=== PATIENT | female | born 1960 | race American Indian/Alaskan Native ===

== ENCOUNTER 2017-07-04 12:29 | Emergency (ER) | payer SELFPAY ==
[2017-07-04 12:39] VITALS: BP 119/73
[2017-07-04] MEDS ORDERED: TYLENOL PO ONE (12:39)
[2017-07-04] MEDS ORDERED: TYLENOL ONE (12:41)
--- NOTE | 2017-07-04 16:53 | Emergency Department Report ---
Chief Complaint: Upper Respiratory Infection Stated Complaint: FLU LIKE SYMPTOMS - ROS Review of Systems: 56-year-old female with history of hypertension diabetes, tobacco abuse presents with cough and low-grade fever. Nonproductive cough. Chest x-ray 2 View ordered. - Exam Vital Signs: Vital Signs 07/04/17 12:34 Temperature 100 F H Pulse Rate 91 H Respiratory 16 Rate Blood Pressure 119/73 O2 Sat by Pulse 96 Oximetry MSE screening note: Focused history and physical exam performed. Due to findings the following was ordered: ED Disposition for MSE Condition: Stable Referrals: PRIMARY CARE, [Primary Care Provider] - 3-5 Days
--- NOTE | 2017-07-04 18:21 | XRay Report ---
FINAL REPORT EXAM: XR CHEST ROUTINE 2V HISTORY: cough fever tobacco abuse TECHNIQUE: 2 view examination of the chest PRIORS: None FINDINGS: Atherosclerotic change in the thoracic aorta. Degenerative change in the thoracic spine. There is no visible pulmonary consolidation, pleural effusion, or pneumothorax. Cardiac silhouette size is normal without vascular congestion. IMPRESSION: No evidence of acute cardiopulmonary disease
--- NOTE | 2017-07-04 20:00 | Emergency Department Report ---
HPI - General Chief Complaint: Upper Respiratory Infection Time Seen by Provider: 07/04/17 19:53 - HPI HPI: Patient reports cough and congestion with generalized weakness that started 2 days ago. Patient's a diabetic and said her blood sugars been stable. She said pain to her left hip at 5 out of 10. Denies any injury. Denies any shortness of breath or chest pain. Denies any abdominal or back pain. Denies any fever or chills. No [id number] medication taken. ED Past Medical Hx - Past Medical History Previous Medical History?: Yes Hx Diabetes: Yes - Surgical History Past Surgical History?: No - Family History Family history: hypertension - Social History Smoking Status: Current Every Day Smoker Substance Use Type: None - Medications Home Medications: Home Medications Medication Instructions Recorded Confirmed Last Taken Type Cetirizine HCl [ZyrTEC] 10 mg PO QAM 10 Days #10 capsule 07/04/17 Unknown Rx Fluticasone [Flonase] 1 spray NS QDAY 10 Days #1 bottle 07/04/17 Unknown Rx guaiFENesin/CODEINE [Robitussin AC] 5 ml PO Q8H PRN #753 ml 07/04/17 Unknown Rx ED Review of Systems ROS: Stated complaint: FLU LIKE SYMPTOMS Other details as noted in HPI Comment: All other systems reviewed and negative Constitutional: no symptoms reported Eyes: denies: eye pain, eye discharge ENT: congestion. denies: ear pain, throat pain Respiratory: cough. denies: orthopnea, shortness of breath, SOB with exertion, SOB at rest, stridor, wheezing Cardiovascular: denies: chest pain, palpitations, dyspnea on exertion, edema, syncope, paroxysmal nocturnal dyspnea Gastrointestinal: denies: nausea, vomiting, diarrhea, constipation, hematemesis , melena Genitourinary: denies: dysuria, hematuria Musculoskeletal: arthralgia (left hip pain), myalgia. denies: back pain, joint swelling Skin: denies: rash Neurological: denies: headache, numbness, paresthesias, confusion, abnormal gait , vertigo Physical Exam - Physical Exam Vital Signs: Vital Signs 07/04/17 12:34 Temperature 100 F H Pulse Rate 91 H Respiratory 16 Rate Blood Pressure 119/73 O2 Sat by Pulse 96 Oximetry Vital Signs 07/04/17 07/04/17 12:34 19:56 Temperature 100 F H 99.4 F Pulse Rate 91 H 88 Respiratory 16 Rate Blood Pressure 119/73 O2 Sat by Pulse 96 Oximetry General: This is a 56-year-old female well-nourished, well-developed in no acute distress. Physical Exam: Head: Normocephalic atraumatic Ears:BIateral TM congested without erythema and loss of bony landmarks. Cornell EAC with normal exam. No mastoid bone tenderness. Mouth: Moist, no pharyngeal erythema or exudate . No tonsillar erythema or exudate. UVULA midline and oral airways patent. No peritonsillar abscess Neck: Nontender to palpate, supple, normal range of motion. No adenopathy. No c- spine tenderness. Nose: Bilateral nasal mucosa congested with clear drainage. Maxillary and frontal sinuses non-tender to palpate. Eyes:Cornell Sclerae and conjunctiva without injection. Bilateral pupils equal and reactive to light. Bilateral lids are normal. Normal accommodation.BEOMI Lungs: Clear to auscultate bilaterally, no rhonchi wheezes or rales. Normal work of breathing and no chest wall tenderness Abdomen: Soft, nontender to palpate in all quadrants no guarding or rebound tenderness Extremities/MSK: No clubbing, cyanosis or edema. +2 pulses all extremities. No neurovascular compromise. +5 strength in all extremities and patient able to ambulate without any difficulties. CV: S1, S2. Regular rate and rhythm negative murmur. Capillary refill is less than 3 seconds Skin: Clean dry and intact, no rashes or lesions Psych: Normal mood and behavior ED Course Vital Signs 07/04/17 12:34 Temperature 100 F H Pulse Rate 91 H Respiratory 16 Rate Blood Pressure 119/73 O2 Sat by Pulse 96 Oximetry Vital Signs 07/04/17 07/04/17 12:34 19:56 Temperature 100 F H 99.4 F Pulse Rate 91 H 88 Respiratory 16 Rate Blood Pressure 119/73 O2 Sat by Pulse 96 Oximetry - Reevaluation(s) Reevaluation #1: 07/04/17 20:00 Patient stable throughout ED stay ED Medical Decision Making - Radiology Data Radiology results: report reviewed Chest x-ray revealed no acute cardiopulmonary findings - Medical Decision Making ED course: Patient here for upper respiratory infection with hip pain. Chest x- ray reveals no acute cardiopulmonary findings. Patient with low-grade temp and is given Tylenol 650 mg in emergency room along with another syringe and 25 mg in ED. Pain has been relieved and her vital signs as better. Patient with upper respiratory tract infection with fever and cough. I discussed results and diagnosis, treatment plan and follow-up the patient she voiced understanding patient discharged home a prescription for Zyrtec, Flonase, guaifenesin with codeine and to follow-up with her primary care physician Critical care attestation.: If time is entered above; I have spent that time in minutes in the direct care of this critically ill patient, excluding procedure time. ED Disposition Clinical Impression: Cough in adult, Fever in adult Upper respiratory infection Qualifiers: URI type: unspecified URI Qualified Code(s): J06.9 - Acute upper respiratory infection, unspecified Disposition: TO HOME OR SELFCARE Is pt being admited?: No Does the pt Need Aspirin: No Condition: Stable Instructions: Upper Respiratory Infection (ED), Acute Cough (ED) Additional Instructions: Please increase her fluid intake Flush nostrils with saline nasal spray Please do not drive or operate heavy machinery while taking cough medicine of this medication causes drowsiness F/U with primary care physician as instructed Prescriptions: Cetirizine HCl [ZyrTEC] 10 mg PO QAM 10 Days #10 capsule Fluticasone [Flonase] 1 spray NS QDAY 10 Days #1 bottle guaiFENesin/CODEINE [Robitussin AC] 5 ml PO Q8H PRN #753 ml PRN Reason: Cough Referrals: PRIMARY CAREMD [Primary Care Provider] - 07/08/17 Forms: Work/School Release Form(ED)
== END 2017-07-04 20:11 | disposition home or self-care (01) ==
LOC: ED 12:29
DX: J06.9 Acute upper respiratory infection, unspecified (principal); M25.552 Pain in left hip; R53.1 Weakness; E11.9 Type 2 diabetes mellitus without complications; F17.200 Nicotine dependence, unspecified, uncomplicated; Z88.0 Allergy status to penicillin
CPT/HCPCS: 71046; 82962